=== PATIENT | male | born 1960 | race Caucasian/White ===

== ENCOUNTER 2021-10-08 09:58 | Emergency (ER) | payer SELFPAY ==
[~2021-10-08] VITALS: Ht 177.8 cm; Wt 93.9 kg
--- NOTE | 2021-10-08 10:15 | NUR ---
IV CANNULA G20 INSERTED ON LEFT HAND, BLOOD DRAWN AND GIVEN TO LOBSTER CATCHER
--- NOTE | 2021-10-08 10:25 | NUR ---
CXR DONE AT BEDSIDE
[2021-10-08] MEDS ORDERED: IBUPROFEN 600 MG TABLET PO ONE (10:30)
[2021-10-08 10:43] LABS: BASOPHILS % (AUTO) 0.8 % (0.0-2.0); EOSINOPHILS % (AUTO) 0.2 % (0.0-6.0); HEMATOCRIT 38 % (39-51); HEMOGLOBIN 12.5 g/dL (13.5-17.5); LYMPHOCYTES # (AUTO) 2.2 K/uL (0.8-4.8); LYMPHOCYTES % (AUTO) 35.6 % (20.0-44.0); MEAN CORPUSCULAR HGB CONC 33 g/dl (31.0-36.0); MEAN CORPUSCULAR VOLUME 90 fL (80-96); MONOCYTES # (AUTO) 0.6 K/uL (0.1-1.30); MONOCYTES % (AUTO) 9.5 % (2.0-12.0); NEUTROPHILS # (AUTO) 3.3 K/uL (1.8-8.9); NEUTROPHILS % (AUTO) 53.9 % (43.0-81.0); PLATELET COUNT (AUTO) 318 K/uL (150-450); RED BLOOD CELL COUNT(AUTO) 4.26 MIL/uL (4.5-6.0); WHITE BLOOD COUNT (AUTO) 6.2 K/uL (4.3-11.0)
--- NOTE | 2021-10-08 10:50 | NUR ---
PT BROUGHT TO RADIOLOGY DEPARTMENT FOR CT SCANS
--- NOTE | 2021-10-08 11:00 | NUR ---
Received this 61yo male patient lying in bed asleep. LACHO [id number] "was found in front of [place] c/o MUNOZ,CP,Bodyache-everything hurts (+)ETOH- drank beer today, NSR. Vitals checked. Attached to monitor.
[2021-10-08 11:02] LABS: CALCIUM, SERUM 8.8 mg/dL (8.5-10.1); CARBON DIOXIDE 25 mmol/L (21-32); CHLORIDE 103 mmol/L (98-107); GLUCOSE 121 mg/dL (74-106); POTASSIUM 3.6 mmol/L (3.5-5.1); SODIUM SERUM 141 mmol/L (136-145); UREA NITROGEN, BLOOD 28 mg/dL (7-18)
[2021-10-08] MEDS ORDERED: IBUPROFEN 600 MG TABLET ONE (11:17)
--- NOTE | 2021-10-08 12:24 | NUR ---
CALLED LAB FOR TRIPONIN RESULT.
[2021-10-08 13:33] VITALS: BP 121/76
--- NOTE | 2021-10-08 13:33 | NUR ---
IV removed. Catheter intact and site benign. Pressure and 4x4 applied to site. No bleeding noted.Patient discharged to home in stable condition. Written and verbal after care instructions given. Patient verbalizes understanding of instruction.
== END 2021-10-08 13:34 | disposition home or self-care (01) ==
LOC: ER 10:00
DX: S00.01XA Abrasion of scalp, initial encounter (principal); R07.89 Other chest pain; I10 Essential (primary) hypertension; J44.9 Chronic obstructive pulmonary disease, unspecified; E11.9 Type 2 diabetes mellitus without complications; F17.200 Nicotine dependence, unspecified, uncomplicated; Z98.890 Other specified postprocedural states; X58.XXXA Exposure to other specified factors, initial encounter; Y93.89 Activity, other specified; Y92.89 Other specified places as the place of occurrence of the external cause; Y99.8 Other external cause status
CPT/HCPCS: 36415; 70450-TC; 71045-TC; 72125-TC; 80048-TC; 84484-TC; 85025-TC

== ENCOUNTER 2024-10-04 15:09 | Inpatient (IN) | payer MEDICARE ==
[~2024-10-04] VITALS: Ht 188 cm; Wt 117.0 kg
[2024-10-04 16:00] VITALS: BP 134/77; TEMP 98.1; O2SAT 98
[2024-10-04] MEDS ORDERED: THIA100T74 PO (16:09)
[2024-10-04] MEDS ORDERED: ACAM333T8 PO (16:09)
[2024-10-04] MEDS ORDERED: PANT40TA2 PO (16:09)
[2024-10-04] MEDS ORDERED: NICO-762 TD (16:09)
[2024-10-04] MEDS ORDERED: AMLO5TAB4 PO (16:09)
[2024-10-04] MEDS ORDERED: MULT-594 PO (16:09)
[2024-10-04] MEDS ORDERED: GABA300C PO (16:09)
[2024-10-04] MEDS ORDERED: TRAZ-182 PO (16:09)
[2024-10-04] MEDS ORDERED: ALBU8.5H8 IH (16:09)
[2024-10-04] MEDS ORDERED: DOCU100C36 PO (16:09)
[2024-10-04] MEDS ORDERED: GABA600T PO (16:09)
[2024-10-04] MEDS ORDERED: FAMO20TA80 PO (16:09)
[2024-10-04] MEDS ORDERED: FINA5TAB11 PO (16:09)
[2024-10-04] MEDS ORDERED: ATOR40TA PO (16:09)
[2024-10-04] MEDS ORDERED: RAME8TAB24 PO (16:09)
[2024-10-04] MEDS ORDERED: OLAN5TAB3 PO (16:09)
[2024-10-04] MEDS ORDERED: NALTREXONE IM (16:09)
[2024-10-04] MEDS ORDERED: SERT100T PO (16:09)
[2024-10-04] MEDS ORDERED: VARE1TAB PO (16:09)
[2024-10-04] MEDS ORDERED: LEVE500T20 PO (16:09)
[2024-10-04] MEDS ORDERED: PARO30TA4 PO (16:09)
[2024-10-04] MEDS ORDERED: MELA3TAB41 PO (16:09)
[2024-10-04] MEDS ORDERED: ZOLP6.252 PO (16:09)
[2024-10-04] MEDS ORDERED: LORAZEPAM 0.5 MG TABLET PO PRN (16:30)
[2024-10-04] MEDS ORDERED: ZOLPIDEM TARTRATE 5 MG TABLET PO PRN (16:30)
[2024-10-04] MEDS ORDERED: MAG HYDROX/AL HYDROX/SIMETH 30 ML UDC PO PRN (16:30)
[2024-10-04] MEDS ORDERED: MAGNESIUM HYDROXIDE 30 ML UDC PO PRN (16:30)
[2024-10-04] MEDS: BLOOD SUGAR DIAGNOSTIC 1 EACH STRIP IN ONE (16:53)
[2024-10-04] MEDS: LEVETIRACETAM (250 MG) 250 MG TABLET PO SCH (16:58)
[2024-10-04] MEDS: GABAPENTIN 300 MG CAPSULE PO SCH ×2 (16:58→21:41)
[2024-10-04] MEDS ORDERED: DOCUSATE SODIUM 100 MG CAPSULE PO PRN (17:00)
[2024-10-04] MEDS ORDERED: ALBUTEROL FS 2.5 MG/3 ML VIAL.NEB NEB PRN (17:00)
[2024-10-04] MEDS ORDERED: Medication Not On Formulary EA (Melatonin 3 MG) PO PRN (17:00)
[2024-10-04 19:58] VITALS: BP 100/86; TEMP 98.3; O2SAT 98
[2024-10-04] MEDS: FINASTERIDE (5 MG) 5 MG TABLET PO SCH (21:41)
[2024-10-05 07:14] LABS: ALBUMIN 3.2 g/dL (3.4-5.0); BILIRUBIN,TOTAL 0.8 mg/dL (0.2-1.0); CALCIUM, SERUM 8.7 mg/dL (8.5-10.1); CREATININE 0.9 mg/dL (0.6-1.3); POTASSIUM 3.8 mmol/L (3.5-5.1); TOTAL PROTEIN, SERUM 6.2 g/dL (6.4-8.2)
[2024-10-05 07:31] LABS: CHOLESTEROL 218 mg/dL (<200); HDL CHOLESTEROL 76 mg/dL (40-60); LDL 122 mg/dL (0-99); TRIGLYCERIDES 119 mg/dL (30-150)
[2024-10-05 08:00] VITALS: BP 130/89; TEMP 97.9; O2SAT 99
[2024-10-05] MEDS: PANTOPRAZOLE 40 MG TABLET.DR PO SCH (08:30)
[2024-10-05] MEDS: MULTIVITAMINS,THERAGRAN 1 UDTAB TABLET PO SCH (08:31)
[2024-10-05] MEDS: THIAMINE HCL 100 MG TABLET PO SCH (08:31)
[2024-10-05] MEDS: AMLODIPINE BESYLATE 5 MG TABLET PO SCH (08:32)
[2024-10-05] MEDS: NEOMY SULF/BACITRAC ZN/POLY 15 GM TUBE TP SCH (08:32)
[2024-10-05] MEDS: NICOTINE PATCH (21MG) 21 MG PATCH.TD24 TD SCH (08:33)
[2024-10-05] MEDS: LORAZEPAM 0.5 MG TABLET PO PRN (13:45)
[2024-10-05 16:00] VITALS: BP 143/96; TEMP 98.2; O2SAT 98
[2024-10-05] MEDS: LOPERAMIDE HCL (2 MG CAP) 2 MG CAPSULE PO PRN (17:21)
[2024-10-05 19:37] LABS: CREATININE 0.9 mg/dL (0.6-1.3)
[2024-10-05 20:00] VITALS: BP 133/97; TEMP 98.1; O2SAT 96
[2024-10-05] MEDS: QUETIAPINE FUMARATE 100 MG TABLET PO SCH (21:35)
[2024-10-06 08:00] VITALS: BP 129/96; TEMP 97.8; O2SAT 100
[2024-10-06] MEDS: FAMOTIDINE (20 MG) 20 MG TABLET PO PRN (09:34)
[2024-10-06] MEDS: PAROXETINE HCL 20 MG TABLET PO SCH (09:35)
[2024-10-06 16:00] VITALS: BP 120/83; TEMP 98; O2SAT 97
[2024-10-06 20:06] VITALS: BP 127/79; TEMP 98; O2SAT 97
[2024-10-07 08:00] VITALS: BP 126/71; TEMP 98; O2SAT 98
[2024-10-07] MEDS: ACETAMINOPHEN 325 MG TABLET PO PRN (13:47)
[2024-10-07 15:38] VITALS: BP 112/92; TEMP 98.4; O2SAT 98
[2024-10-07 20:01] VITALS: BP 136/94; TEMP 98; O2SAT 98
[2024-10-08 08:00] VITALS: BP 148/90; TEMP 98.6; O2SAT 98
[2024-10-08] MEDS: hydrOXYzine PAMOATE 25 MG CAPSULE PO PRN (12:38)
[2024-10-08 16:00] VITALS: BP 142/98; TEMP 98.2; O2SAT 99
[2024-10-08 19:56] VITALS: BP 131/86; TEMP 98.2; O2SAT 98
[2024-10-09 08:00] VITALS: BP 138/99; TEMP 98.1; O2SAT 100
[2024-10-09] MEDS: PAROXETINE HCL 20 MG TABLET PO SCH (10:12)
[2024-10-09 15:55] VITALS: BP 130/99; TEMP 98.3; O2SAT 98
== END 2024-10-09 16:10 | disposition home or self-care (01) | DRG 885 ==
LOC: GPS 15:09
PROVIDERS: ADMIT Psychiatry & Neurology Psychiatry; ATTEND Internal Medicine
DX: F33.3 Major depressive disorder, recurrent, severe with psychotic symptoms (principal); R45.851 Suicidal ideations; I10 Essential (primary) hypertension; E11.9 Type 2 diabetes mellitus without complications; S80.812A Abrasion, left lower leg, initial encounter; S90.812A Abrasion, left foot, initial encounter; X58.XXXA Exposure to other specified factors, initial encounter; Y92.89 Other specified places as the place of occurrence of the external cause; S51.012D Laceration without foreign body of left elbow, subsequent encounter; X58.XXXD Exposure to other specified factors, subsequent encounter; G40.909 Epilepsy, unspecified, not intractable, without status epilepticus; G62.9 Polyneuropathy, unspecified; E78.5 Hyperlipidemia, unspecified; F10.20 Alcohol dependence, uncomplicated; R41.89 Other symptoms and signs involving cognitive functions and awareness; Z91.81 History of falling; M62.81 Muscle weakness (generalized); Z79.899 Other long term (current) drug therapy
CPT/HCPCS: 36415; 80053-TC; 80061-TC; 82565-TC; 82962-TC; 97116-TC; 97530-TC; Q0177